=== PATIENT | female | born 1930 | race Caucasian/White ===

== ENCOUNTER 2016-10-23 15:18 | Emergency (ER) | payer OTHER, MEDICARE ==
[~2016-10-23] VITALS: Ht 152.4 cm; Wt 54.4 kg
[~2016-10-23 15:18] MED LIST: ALBUTEROL0.09 MG/A1 INH; AMIODARONE200 MG PO; AVAPRO75 MG PO; DOXYCYCLINE MO100 MG PO; ECOTRIN81 MG PO; GUAFENESIN400 MG PO; LIDODERM 5% PAT1 PAT EXT; MEDROL DOSEPAK1 PAC PO; MELOXICAM7.5 MG PO; MIRALAX17 GM PO; MOTRIN 400 MG400 MG PO; NAMENDA5 MG PO; PRISTIQ ER50 MG PO; PROTONIX 40MG T40 MG PO; ROXICODONE5 MG PO; ROZEREM8 MG PO; Senokot S PO; TESSALON PERLE100 MG PO; TRAMADOL HCL50 MG PO; TYLENOL500 MG PO; VITAMIN D1000 IU PO; ZITHROMAX Z-PA250 M1 PO
[2016-10-23 15:24] VITALS: BP 176/70
--- NOTE | 2016-10-23 16:13 | ED GI/GU/ABDOMINAL COMPLAINT ---
History of Present Illness General Chief Complaint: General Adult Stated Complaint: SIB MD MARTÍNEZ FOR BLACK STOOL Source: patient, family Exam Limitations: dementia Vital Signs & Intake/Output Vital Signs & Intake/Output Vital Signs Date Time Temp Pulse Resp B/P Pulse O2 O2 Flow FiO2 Ox Delivery Rate 10/23 1524 97.2 80 18 176/70 98 Room Air Allergies Coded Allergies: fentanyl (GI UPSET, TORRES 01/25/16) morphine (HEADACHE, GI UPSET 01/25/16) codeine (Mild, GI, HEADACHE 01/25/16) hydrocodone (Mild, GI, TORRES 01/25/16) meperidine (From DEMEROL) (Mild, HALLUCINATIONS 01/25/16) oxycodone (Mild, GI, TORRES 01/25/16) procaine (Mild, HEADACHE, UPSET STOMACH 01/25/16) Reconcile Medications Amiodarone Hydrochloride (Amiodarone) 200 MG TAB 1 TAB PO DAILY HEART ( Reported) Aspirin (Ecotrin) 81 MG ECT 1 TAB PO DAILY HEART/BLOOD (Reported) Cholecalciferol (Vitamin D3) 1,000 IU TAB 1,000 IU PO DAILY VIT D SUPPLEMENT, OSTEOPOROSIS Desvenlafaxine Succinate (Pristiq ER) 50 MG TAB.ER.24H 1 TAB PO DAILY DEPRESSION (Reported) Irbesartan (Avapro) 75 MG TAB 1 TAB PO DAILY BP (Reported) Memantine Hydrochloride (Namenda) 5 MG TAB 1 TAB PO BID DEMENTIA (Reported) Triage Note: 85 YEAR OLD FEMALE TO ER WITH HER , SPOUSE STATES THAT PT HAS DEMENTIA AND THAT OVER THE PAST 3 DAYS SHE HAS HAD BLACK STOOL. THEY CALLED HER PMD AND THEY TOLD HER TO COME TO ER. PTS SPOUSE STATES THAT HE IS WONDERING IF ITS THE BLUE BERRIES THAT PT EATS IN THE AM. DESCIBE STOOL HAS SMOOTH BALLS. PT DENIES ABD PAIN/N/V/D. Triage Nurses Notes Reviewed? yes ? N Is pt currently ? No Onset: Abrupt Duration: constant Timing: recent history Severity Numbers: 1 Radiation: no radiation Activities at Onset: none HPI: Patient is a 85-year-old female with a past medical history of dementia, atrial fibrillation not on anticoagulation, osteoporosis and hypertension who presents emergency room with in which patient history is limited due to dementia concerns however states that the past 4 days she has had bowel movements with noted black tarry stools. Patient told this to her primary care Dr. Martínez today and advised patient to present to emergency room. Patient states that last colonoscopy was approximately 10 years ago and has had unremarkable findings with the colonoscopies. Denies any fever, chills, lightheaded sensation dizziness chest pain arm pain jaw pain nausea vomiting abdominal pain weight loss, bright red blood per rectum, rectal pain, states the patient has been acting normal and has not described any symptoms however only has sign of back tarry stools (GIUSEPPE GRUBBS) Past History Travel History Traveled to [place] past 21 day No Medical History Any Pertinent Medical History? 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 No (GIUSEPPE GRUBBS) Review of Systems Review of Systems Constitutional: Reports: no symptoms. EENTM: Reports: no symptoms. Respiratory: Reports: no symptoms. Cardiovascular: Reports: no symptoms. GI: Reports: see HPI, changes in stool. Denies: abdominal pain, nausea. Genitourinary: Reports: no symptoms. Musculoskeletal: Reports: no symptoms. Skin: Reports: no symptoms. Neurological/Psychological: Reports: no symptoms. Hematologic/Endocrine: Reports: no symptoms. Immunologic/Allergic: Reports: no symptoms. All Other Systems: Reviewed and Negative (GIUSEPPE GRUBBS) Physical Exam Physical Exam General Appearance: no apparent distress, alert Gastrointestinal: normal bowel sounds, soft, non-tender, no organomegaly Rectal: heme negative stool, BROWN STOOL Comments: Well-developed well-nourished person in no acute distress HEENT: Normal EENT exam, Neck: Supple, no lymphadenopathy, normal range of motion without pain or tenderness Back: Nontender, no CVA tenderness. Cardiovascular: Regular rate and rhythms no murmurs rubs or gallops, normal JVP Respiratory: Chest nontender. No respiratory distress.breath sounds clear to auscultation bilaterally Abdomen: Soft, nontender nondistended, no appreciable organomegaly. Normal bowel sounds. No ascites Extremity: No edema, no calf tenderness to palpation, normal and equal pulses. Neuro: Alert, motor sensory normal, Skin: No appreciable rash on exposed skin, skin is warm and dry. Psych: Mood and affect is normal, memory and judgment is normal. Core Measures ACS in differential dx? No Severe Sepsis Present: No Septic Shock Present: No (GIUSEPPE GRUBBS) Progress Differential Diagnosis: AAA, AMI, biliary colic, bowel obstruction, colon cancer , cholecystitis, diverticulitis, endometritis, esophageal varices, gastritis, hepatitis, hernia, hemorrhoids, ischemic bowel, inflamm bowel dis, kidney stone, Yvette-Myra tear, ovarian cyst, ovarian torsion, pancreatitis, PID/cervicitis, peptic ulcer, PUD/GERD, perforated viscous, SBO, UTI/pyelo Initial ED EKG: none (GIUSEPPE GRUBBS) Plan of Care: Orders Procedure Date/time Status PARTIAL THROMBOPLASTIN TIME 10/23 161 Complete PROTHROMBIN TIME 10/23 161 Complete COMPREHENSIVE METABOLIC PANEL 10/23 161 Complete CBC WITHOUT DIFFERENTIAL 10/23 161 Complete TYPE & SCREEN (NOT X-MATCH) 10/23 161 Active Laboratory Tests 10/23/16 1628: Anion Gap 13, Estimated GFR 60, BUN/Creatinine Ratio 26.7 H, Glucose 83, Calcium 9.5, Total Bilirubin 0.7, AST 20, ALT 30, Alkaline Phosphatase 38, Total Protein 6.8, Albumin 4.5, Globulin 2.3, Albumin/Globulin Ratio 2.0, PT 10.2, INR 0.97, APTT 28, CBC w Diff NO MAN DIFF REQ, RBC 4.28, MCV 92.1, MCH 31.3 H, RDW 13.1, MPV 7.9, Gran % 73.6, Lymphocytes % 16.0 L, Monocytes % 7.6, Eosinophils % 2.2, Basophils % 0.6, Absolute Granulocytes 4.8, Absolute Lymphocytes 1.1 L, Absolute Monocytes 0.5, Absolute Eosinophils 0.1, Absolute Basophils 0, PUBS MCHC 34.0 Patient on initial examination looks well no apparent distress has nontender abdomen and rectal exam showed brown stool and negative fecal occult blood test Vital signs are stable patient is normotensive Blood work will be obtained for concerns of resolved GI bleed. Blood work was unremarkable hemoglobin and hematocrit were stable Patient was informed of all labs results patient was strongly advised to follow up with primary care doctor. I discussed disposition plan with son and who agree. Patient was given copies of blood work for follow-up. Discussed disposition and plan with Dr. Baptiste who agrees (GIUSEPPE GRUBBS) Departure Departure Disposition: HOME OR SELF CARE Condition: Stable Clinical Impression Primary Impression: Black stool Referrals: MAURICIO RAMÍREZ,ANUSHKA (PCP/Family) Additional Instructions: As discussed please follow-up with your primary care doctor tomorrow and continue home medications as directed. 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 If symptoms worsen or if you develop WORSENING SYMPTOMS return to emergency room immediately. Please give the primary care doctor copies of the blood work redness in the emergency room Departure Forms: Customer Survey General Discharge Information (GIUSEPPE GRUBBS) PA/TANNING WHEEL OPERATOR Co-Sign Statement Statement: ED Attending supervision documentation- [x] I saw and evaluated the patient. I have also reviewed all the pertinent lab results and diagnostic results. I agree with the findings and the plan of care as documented in the PA's/TANNING WHEEL OPERATOR's documentation. [] I have reviewed the ED Record and agree with the PA's/TANNING WHEEL OPERATOR's documentation. [] Additions or exceptions (if any) to the PAs/TANNING WHEEL OPERATOR's note and plan are summarized below: [] (ARLYN RAMÍREZ,MILADIS Suero)
[2016-10-23 16:54] LABS: ABSOLUTE BASOPHIL COUNT 0 /CUMM (0.0-0.2); ABSOLUTE EOSINOPHIL COUNT 0.1 /CUMM (0.0-0.7); ABSOLUTE GRANULOCYTE CT 4.8 /CUMM (1.4-6.5); ABSOLUTE LYMPH COUNT 1.1 /CUMM (1.2-3.4); ABSOLUTE MONOCYTE COUNT 0.5 /CUMM (0.10-0.60); BASOPHIL % 0.6 % (0.0-2.0); EOSINOPHIL % 2.2 % (0-5); GRANULOCYTE % 73.6 % (42.2-75.2); HEMATOCRIT 39.4 % (37-47); MEAN CORPUSCULAR HGB 31.3 PG (27.0-31.0); MEAN CORPUSCULAR VOLUME 92.1 FL (81.0-99.0); MEAN PLATELET VOLUME 7.9 FL (7.4-10.4); PLATELET COUNT 220 /CUMM (130-400); RBC DISTRIBUTION WIDTH 13.1 % (11.5-14.5); RED BLOOD CELL CT 4.28 /CUMM (4.20-5.40); WHITE BLOOD CELL COUNT 6.6 /CUMM (4.8-10.8)
[2016-10-23 17:04] LABS: PT 10.2 SEC (9.4-12.5); PTT 28 SEC (25-37)
== END 2016-10-23 17:49 ==
LOC: ERH 15:18
PROVIDERS: Physician Assistant
DX: R19.5 Other fecal abnormalities (principal); I48.91 Unspecified atrial fibrillation; F03.90 Unspecified dementia, unspecified severity, without behavioral disturbance, psychotic disturbance, mood disturbance, and anxiety; I10 Essential (primary) hypertension; Z95.0 Presence of cardiac pacemaker; Z96.659 Presence of unspecified artificial knee joint

== ENCOUNTER 2017-12-23 12:19 | Emergency (ER) | payer OTHER, MEDICARE ==
[~2017-12-23 12:19] MED LIST changes: +AMIODARONE HCL200 M1 PO; -AMIODARONE200 MG PO; +ASPIRIN EC81 M1 PO; +AVAPRO75 M1 PO; -AVAPRO75 MG PO; +CRANBERRY400 M2 PO; -ECOTRIN81 MG PO; +FISH OIL 1,0001 EACH PO; +FOLIC ACID1 M1 PO; +MAGNESIUM400 M1 PO; +NAMENDA5 M1 PO; -NAMENDA5 MG PO; +UBIQUINOL100 MG PO; +VITAMIN B-121000 MC3 PO; +VITAMIN C500 M6 PO; +VITAMIN D35000 UNI1 PO; +ZOFRAN ODT4 M1 SL
[2017-12-23] MEDS ORDERED: ADDERALL 5 MG TA5 MG PO (12:28)
--- NOTE | 2017-12-23 12:43 | ED MVC/FALL/TRAUMA COMPLAINT ---
History of Present Illness General Chief Complaint: Fall Stated Complaint: FALL Source: patient, family Exam Limitations: dementia Vital Signs & Intake/Output Vital Signs & Intake/Output Vital Signs Date Time Temp Pulse Resp B/P B/P Pulse O2 O2 Flow FiO2 Mean Ox Delivery Rate 12/23 1645 Room Air 12/23 1600 97.6 65 16 122/56 96 Room Air 12/23 1422 97.0 78 20 132/79 96 Room Air 12/23 1222 97.0 82 20 151/65 96 Room Air Allergies Coded Allergies: fentanyl (GI UPSET, TORRES 01/25/16) morphine (HEADACHE, GI UPSET 01/25/16) codeine (Mild, GI, HEADACHE 01/25/16) hydrocodone (Mild, GI, TORRES 01/25/16) meperidine (From DEMEROL) (Mild, HALLUCINATIONS 01/25/16) oxycodone (Mild, GI, TORRES 01/25/16) procaine (Mild, HEADACHE, UPSET STOMACH 01/25/16) Reconcile Medications Amiodarone (Cordarone) 200 MG TAB 1 TAB PO DAILY HEART (Reported) Ascorbate Calcium (Vitamin C) 500 MG TABLET 1 TAB PO BID VITAMIN SUPPORT ( Reported) Aspirin (Ecotrin*) 81 MG TABLET.DR 1 TAB PO DAILY HEART (Reported) Cholecalciferol (Vitamin D3) (Vitamin D3) 5,000 UNIT TABLET 1 TAB PO DAILY VITAMIN SUPPORT (Reported) Cranberry 400 MG CAPSULE 1 CAP PO DAILY VITAMIN SUPPORT (Reported) Cyanocobalamin (Vitamin B-12) 1,000 MCG TABLET 1 TAB PO DAILY VITAMIN SUPPORT (Reported) Desvenlafaxine Succinate (Pristiq ER) 50 MG TAB.ER.24H 1 TAB PO DAILY DEPRESSION (Reported) Dextroamphetamine/Amphetamine (Adderall 5 MG Tablet) (Unknown Strength) TABLET (Unknown Dose) PO BID UNKNOWN (Reported) Folic Acid 1 MG TABLET 1 TAB PO DAILY VITAMIN SUPPORT (Reported) Irbesartan (Avapro) 75 MG TABLET 1 TAB PO DAILY HEART (Reported) Magnesium Oxide (Magnesium) 400 MG CAPSULE 1 CAP PO BID SUPPLEMENT (Reported) Memantine HCl (Namenda) 5 MG TABLET 1 TAB PO BID DEMENTIA (Reported) Peebles-3 Fatty Acids/Fish Oil (Fish Oil 1,000 MG Capsule) 340 MG-1,000 MG CAPSULE 1 CAP PO BID SUPPLEMENT (Reported) Ubiquinol 100 MG CAPSULE 1 CAP PO DAILY UNKNOWN (Reported) Triage Note: PER PT/EMS FELL ABOUT 0430 PT UNSURE OF HOW SHE FELL HX OF DEMENTIA, CO L FLANK, L RIB PAIN ALSO L FOREARM ABRASED. PT DID NOT HIT HEAD NO LOC NO BLOOD THINNERS PT DISCHARGED 2 DAYS AGO FROM [facility] SP BLADDER ISSUE Triage Nurses Notes Reviewed? yes Onset: Abrupt Duration: hour(s): Timing: single episode today Severity: moderate Injuries/Fall Location: upper extremity, chest Method of Injury: fall Loss of Consciousness: no loss of consciousness HPI: 87yo female with hx of dementia, osteoporosis, heart block s/p pacemaker BIBA after fall early this morning around 0430. HPI is limited due to patient's dementia. Patient's reports that he found the patient lying on the ground and was having difficulty getting her up and called for an ambulance. Patient states she was walking to the bathroom when she fell, she is unsure of how exactly she fell, denies head strike or loss of consciousness. Patient has skin tear to right forearm and is complaining of left lateral rib cage pain, worse with inspiration. Patient was recently discharged from [facility] 2 days ago following a right ureteral stent placement by Dr. Mccain. She has been taking Bactrim antibiotics following this procedure. Patient denies headache, visual changes, vomiting, abdominal pain, presyncope, lightheadedness. (Cristiana Shankar) Past History Travel History Traveled to [place] past 21 day No Medical History Any Pertinent Medical History? see below for history Neurological: dementia EENT: NONE Cardiovascular: pace-maker BLOCK Respiratory: NONE Gastrointestinal: NONE Hepatic: NONE Renal: NONE Musculoskeletal: osteoporosis Psychiatric: NONE Endocrine: NONE Blood Disorders: NONE Cancer(s): NONE PUBLIC ADMINISTRATION PROFESSOR/Reproductive: NONE History of MRSA: No History of VRE: No History of CDIFF: No Surgical History Surgical History: appendectomy, knee replacement, pacemaker Psychosocial History Who do you live with Patient and family Services at Home None What is your primary language Bulgarian Tobacco Use: Never used Family History Hx Contributory? No (Cristiana Shankar) Review of Systems Review of Systems Constitutional: Reports: no symptoms. Eyes: Reports: no symptoms. Ears, Nose, Throat, Mouth: Reports: no symptoms. Respiratory: Reports: see HPI. Cardiovascular: Reports: no symptoms. Gastrointestinal/Abdominal: Reports: no symptoms. Genitourinary: Reports: see HPI. Musculoskeletal: Reports: see HPI. Skin: Reports: see HPI. Neurological/Psychological: Reports: no symptoms. All Other Systems: Reviewed and Negative (Peyton GREEN,Cristiana Arellano) Physical Exam Physical Exam General Appearance: well developed/nourished, no apparent distress, alert, awake Head: atraumatic, normal appearance Eyes: Bilateral: normal appearance, PERRL, EOMI. Ears, Nose, Throat, Mouth: hearing grossly normal, moist mucous membrane, Tympanic normal Neck: normal inspection, supple, full range of motion, no midline tenderness Respiratory: normal breath sounds, no respiratory distress, lungs clear, left lateral ribcage tenderness, no ecchymosis or deformity Cardiovascular: regular rate/rhythm, normal peripheral pulses Peripheral Pulses: 2+ radial (R), 2+ radial (L) Gastrointestinal: normal bowel sounds, soft, non-tender, no organomegaly Back: normal inspection, normal range of motion, no vertebral tenderness Extremities: normal range of motion, superficial skin avulsion to right forearm, no active bleeding, mild tenderness of right forearm, ROM intact Hips and lower extremities with intact ROM, nontender Neurologic/Psych: awake, alert, regulatory associate II-XII nml as tested, oriented to person and place, not time Skin: skin avulsion to right forearm Core Measures ACS in differential dx? Yes CVA/TIA Diagnosis No Sepsis Present: No Sepsis Focused Exam Completed? No (Peyton GREEN,Cristiana Arellano) Progress Differential Diagnosis: C/T/L spine injury, ext injury, ICH, pelvis injury, pnemothorax, spinal cord injury, rib fracture, ACS, SAEED, dehydration, electrolyte abnormality Plan of Care: Orders Procedure Date/time Status URINE DRUG SCREEN FOR ER ONLY 12/23 1301 Complete URINALYSIS 12/23 1301 Complete TROPONIN LEVEL 12/23 1301 Complete COMPREHENSIVE METABOLIC PANEL 12/23 1301 Complete CBC WITHOUT DIFFERENTIAL 12/23 1301 Complete EKG 12/23 1224 Active Laboratory Tests 12/23/17 1432: Urine Opiates Screen < 100, Methadone Screen 55, Barbiturate Screen < 60, Ur Phencyclidine Scrn < 6.00, Amphetamines Screen < 100, U Benzodiazepines Scrn < 85, Urine Cocaine Screen < 50, Urine Cannabis Screen < 5.00, Urine Color BLDY H , Urine Clarity CLDY H, Urine pH 7.0, Ur Specific [place] 1.015, Urine Protein 100 H, Urine Ketones TRACE H, Urine Nitrite NEG, Urine Bilirubin NEG, Urine Urobilinogen 0.2, Ur Leukocyte Esterase MOD H, Ur Microscopic SEDIMENT EXAMINED , Urine RBC >75 H, Urine WBC 3-5 H, Urine Hemoglobin LARGE H, Urine Glucose NEG 12/23/17 1340: Anion Gap 7, Estimated GFR 47 L, BUN/Creatinine Ratio 18.2, Glucose 77, Calcium 9.4, Total Bilirubin 0.7, AST 20, ALT 25, Alkaline Phosphatase 36, Troponin I < 0.01, Total Protein 6.0 L, Albumin 3.9, Globulin 2.1, Albumin/Globulin Ratio 1.9, CBC w Diff NO MAN DIFF REQ, RBC 4.09 L, MCV 92.5, MCH 30.8, MCHC 33.3, RDW 13.7, MPV 8.4, Gran % 78.8 H, Lymphocytes % 11.0 L, Monocytes % 8.6, Eosinophils % 1.1, Basophils % 0.5, Absolute Granulocytes 5.0, Absolute Lymphocytes 0.7 L, Absolute Monocytes 0.5, Absolute Eosinophils 0.1, Absolute Basophils [address] scan shows severe right-sided hydronephrosis despite uretal stent. No recent old CT imaging to compare this too, she was recently treated at [facility]. Patient's labs show mild elevated creatinine, 1.1, slightly diminished GFR at 47 which is changed from previous studies. Spoke with [facility] regarding this patient. Patient had stent placed . Patient had moderate to severe hydronephrosis at that time. They do not have old labs to compare kidney function with however state today's kidney function labs appear stable, they recommend follow-up with patient's urologist, Dr. Mccain, tomorrow. Patient ambulatory here in the emergency Department without difficulty. Patient 's family was given list of private pay homemakers and companions for home health aide. The patient agrees with the plan of care, no significant pain at this time. The patient was discussed with Dr. Escudero agrees with this plan. Diagnostic Imaging: Viewed by Me: Radiology Read, CT Scan. Discussed w/RAD: Radiology Read, CT Scan. Radiology Impression: PATIENT: MARTY BABIN PRESENT AGE: 87 PATIENT ACCOUNT NO: [id number] : 30 LOCATION: [facility] ORDERING PHYSICIAN: Cristiana GREEN SERVICE DATE: 12/23/171301 EXAM TYPE: CAT - CT CERV SPINE WO IV CONTRAST; CT HEAD WO IV CONTRAST EXAMINATION: CT OF THE HEAD WITHOUT CONTRAST CT OF THE CERVICAL SPINE WITHOUT CONTRAST CLINICAL INFORMATION: Status post unwitnessed fall. Rule out intracranial hemorrhage or fracture. Evaluate for malalignment of the cervical spine. COMPARISON: CT scan of the head dated 09/28/2013. TECHNIQUE: Contiguous axial imaging was performed from the skullbase to vertex without intravenous administration of contrast. Coronal reformations of the head were obtained. Contiguous axial imaging was then performed from the skull base down to the thoracic inlet. Coronal and sagittal reformations of the cervical spine were obtained. DLP: 903.17 mGy-cm. FINDINGS: Evaluation is mildly limited by motion artifact. CT scan of the head: There is no evidence of acute intracranial hemorrhage or territorial infarction. No abnormal mass-effect or midline shift is seen. Benson to white matter differentiation is well preserved. No extra-axial fluid collections are identified. The ventricles and sulci are enlarged, consistent with involutional changes. There is mild periventricular deep white matter low-attenuation seen, consistent with ischemic small vessel disease. Calcification of the carotid siphons is seen. Scleral banding is noted bilaterally. The osseous structures and soft tissues are normal. The mastoid air cells and visualized portions of the paranasal sinuses are well-aerated. CT scan of the cervical spine: No evidence of acute fracture or dislocation. Craniocervical junction and atlantoaxial articulations are intact. Moderate degenerative changes as seen at the craniocervical junction and atlantoaxial articulation. There is severe disc space narrowing and associated vertebral endplate spurring at the C6-C7 level with associated grade 1 anterolistheses of C6 on C7. Mild degenerative disc disease is seen at C5-C6. Moderate facet arthropathy is present throughout the mid and lower thoracic spine. Prevertebral soft tissues are normal in thickness. Extensive nodularity of the thyroid gland is seen with largest complex cystic and solid mass seen in the right lobe, measuring 1.4 x 1.2 cm (series 11, image 53). Coarse calcifications also seen in the left lobe. The included soft tissues of the neck and lung apices are otherwise unremarkable. Soft tissues in region of the foramen magnum appear unremarkable. IMPRESSION: CT scan of the head: No acute intracranial pathology. Involutional changes and findings of periventricular deep white matter microangiopathic changes noted. CT scan of the cervical spine: No evidence of cervical spine fracture or malalignment. Multilevel degenerative changes in the disks and facet joints. Nodular thyroid gland. Further assessment with thyroid ultrasound is recommended. DICTATED BY: Sophia Hilton MD DATE/TIME DICTATED:12/23/171401 PIPE ORGAN MECHANIC:YASMIN DATE/TIME TRANSCRIBED:12/23/171401 CONFIDENTIAL, DO NOT COPY WITHOUT APPROPRIATE AUTHORIZATION. <Electronically signed in Other Vendor System> SIGNED BY: Sophia Hilton MD. 12/23/17 1420, PATIENT: MARTY BABIN PRESENT AGE: 87 PATIENT ACCOUNT NO: [id number] : 30 LOCATION: [facility] ORDERING PHYSICIAN: Cristiana GREEN SERVICE DATE: 1301 EXAM TYPE: CAT - CT CHEST WO IV CONTRAST EXAMINATION: CT CHEST WITHOUT CONTRAST CLINICAL INFORMATION: Left-sided pleuritic chest pain. Unwitnessed fall. Left rib cage tenderness. Rule out left rib fracture. COMPARISON: Chest x- ray dated 12/03/2015. TECHNIQUE: Multidetector volumetric CT imaging of the chest was obtained noncontrast. Sagittal and coronal reformations were obtained. DLP: 184.53 mGy-cm. FINDINGS: LUNGS: Low lung volumes are seen with dependent atelectatic changes in both lower lobes. Posteriorly in the right lower lobe, a 3.2 x 1.2 x 1.5 cm masslike pleural-based density is seen (series 4, image 248), perhaps representing a peripheral area of subsegmental atelectasis, nodular noncalcified plaque-like thickening of the pleura or other mass. There is a 5 mm solid noncalcified nodule in the right lung apex medially (series 4, image 80). There is a tiny right major fissure-based solid noncalcified nodule consistent with a lymph node (series 4, image 194). No effusion or pneumothorax. Central airways are diffusely calcified and patent. LYMPHOVASCULAR STRUCTURES: Right atrial and right ventricular pacer leads are in place. Aortic and heart size normal. Moderate atherosclerotic calcifications of the thoracic aorta and severe atherosclerotic calcifications of the abdominal aorta are noted. There may be aortic valvular calcifications. No pericardial effusion. No mediastinal, hilar or axillary adenopathy or free fluid collection. THYROID GLAND: Suboptimally assessed due to extensive beam hardening artifact related to the pacemaker generator box in the left upper chest. Nodularity of the thyroid gland is seen. UPPER ABDOMEN: The proximal portion of a double-J right ureteral stent is seen in place. Severe right-sided hydronephrosis is noted. Small amount of air is noted within the right mid kidney and in the renal pelvis region. There is dense material seen layering posteriorly within the gallbladder, possibly due to sludge. No definite intravenous contrast has been given recently to suspect vicarious excretion of contrast. There is some fullness at the GE junction, possibly due to small hiatal hernia. Included portions of the solid organs in the upper abdomen otherwise unremarkable on noncontrast study. BONES: Old healed fracture deformities of the posterior lateral left eighth, ninth, 10th, and 11th ribs are seen. There are also old healed fracture deformities of the right anterior third and fourth rib and the posterior right eighth and ninth rib. There is irregularity of the costochondral junctions of the left fourth, fifth, sixth, eighth, ninth and 10th ribs, possibly also representing old fracture deformities. No acute rib fracture is seen. Convex left thoracolumbar scoliosis is seen with multilevel moderate vertebral spondylosis. IMPRESSION: 1. Multiple bilateral old healed fracture deformities are seen. No definite acute fracture or abnormal periosteal reaction of the ribs is seen. No pneumothorax is noted. 2. Large masslike pleural-based density is seen posteriorly within the left lower lobe. This is of uncertain etiology and may represent a noncalcified focal pleural plaque or other pleural mass versus peripheral area of masslike atelectasis. No underlying rib abnormality is seen in this location to suspect a posttraumatic hematoma or other collection. Short interval follow-up evaluation in 4 weeks is recommended. If findings persist, further investigation with either biopsy or PET/CT scan may be indicated. 3. Likely benign 5 mm right upper lobe pulmonary nodule. Per the Fleischner criteria, if the patient has no underlying risk factors, no additional follow-up is required. If the patient has underlying risk factors, optional CT scan follow-up in 12 months is recommended. 4. No adenopathy. 5. Nodularity of thyroid gland is seen, but is poorly assessed on this exam. Further assessment with thyroid ultrasound is recommended. 6. Severe right-sided hydronephrosis despite double-J right ureteral stent placement. Small amount of air is also seen within the right renal collecting system and renal pelvis. 7. Layering sludge or debris within the gallbladder. DICTATED BY: Sophia Hilton MD DATE/TIME DICTATED:12/23/171421 PIPE ORGAN MECHANIC:YASMIN DATE/TIME TRANSCRIBED:12/23/171421 CONFIDENTIAL, DO NOT COPY WITHOUT APPROPRIATE AUTHORIZATION. <Electronically signed in Other Vendor System> SIGNED BY: Sophia Hilton MD 12/23/17 145, PATIENT: MARTY BABIN PRESENT AGE: 87 PATIENT ACCOUNT NO: [id number] : 30 LOCATION: [facility] ORDERING PHYSICIAN: Cristiana GREEN SERVICE DATE: 12/23/17 EXAM TYPE: RAD - XRY-FOREARM, RIGHT EXAMINATION: XR FOREARM, RIGHT CLINICAL INFORMATION: Status post fall with skin tear to right forearm. Rule out fracture. COMPARISON: None TECHNIQUE: AP and lateral views of the right forearm were obtained. FINDINGS: Diffuse osteopenia. No acute fracture or dislocation. No radiopaque foreign body in the soft tissues. Mild degenerative changes at the first and second carpometacarpal joint partially imaged. IMPRESSION: 1. No fracture or dislocation of the right forearm. 2. Mild degenerative changes at the first and second carpometacarpal joint. DICTATED BY: Sophia Hilton MD DATE/TIME DICTATED:12/23/171454 PIPE ORGAN MECHANIC:YASMIN DATE/TIME TRANSCRIBED:12/23/171454 CONFIDENTIAL, DO NOT COPY WITHOUT APPROPRIATE AUTHORIZATION. <Electronically signed in Other Vendor System> SIGNED BY: Sophia Hilton MD 12/23/17 1500 Initial ED EKG: atrial paced complexes, rate about 60bpm, LBBB, nonspecific ST changes Prior EKG: unchanged (10/02/17) (Peyton GREEN,Cristiana Arellano) Departure Departure Disposition: HOME OR SELF CARE Condition: Stable Clinical Impression Primary Impression: Fall Qualifiers: Encounter type: initial encounter Qualified Code: W19.XXXA - Unspecified fall, initial encounter Secondary Impressions: Hydronephrosis Qualifiers: Hydronephrosis type: unspecified Qualified Code: N13.30 - Unspecified hydronephrosis Referrals: Michelle RAMÍREZ,Geremias (PCP/Family) Additional Instructions: Call Dr. Mccain tomorrow to discuss the CAT scan results, he may when she do follow up in the office this week. Use a walker when you are at home. Return with any worsening symptoms or concerns. Please note that there might be incidental findings in your evaluation that are unrelated to the current emergency department visit. Please notify your primary care doctor about this emergency department visit in order to obtain and review all of the testing performed so that these incidental findings can be monitored as needed. If you had an x-ray performed, please understand that some fractures may not be seen on the initial set of x-rays. If your symptoms persist you might need a repeat set of x-rays to check for such a fracture. If you had a laceration evaluated, please understand that foreign bodies such as glass or wood may not be visible to the naked eye or on plain x-rays. If the wound becomes red, swollen, increasingly more painful or if there is any drainage from the wound, please have it reevaluated by a physician for the possibility of a retained foreign body. If you're unable to follow up as outlined in the discharge instructions please return to the emergency department. Thank you for choosing the [facility] Emergency Department for your care. It was a pleasure to serve you today. Departure Forms: Customer Survey General Discharge Information (Peyton GREEN,Cristiana Arellano) PA/VIRTUALIZATION CONSULTANT Co-Sign Statement Statement: ED Attending supervision documentation- [X] I saw and evaluated the patient. I have also reviewed all the pertinent lab results and diagnostic results. I agree with the findings and the plan of care as documented in the PA's/VIRTUALIZATION CONSULTANT's documentation. [X] I have reviewed the ED Record and agree with the PA's/VIRTUALIZATION CONSULTANT's documentation. [] Additions or exceptions (if any) to the PAs/VIRTUALIZATION CONSULTANT's note and plan are summarized below: [] (Kota RAMÍREZ,Tristin Torres)
[2017-12-23 14:06] LABS: ABSOLUTE BASOPHIL COUNT 0 /CUMM (0.0-0.2); ABSOLUTE EOSINOPHIL COUNT 0.1 /CUMM (0.0-0.7); ABSOLUTE LYMPH COUNT 0.7 /CUMM (1.2-3.4); ABSOLUTE MONOCYTE COUNT 0.5 /CUMM (0.10-0.60); BASOPHIL % 0.5 % (0.0-2.0); EOSINOPHIL % 1.1 % (0-5); GRANULOCYTE % 78.8 % (42.2-75.2); HEMATOCRIT 37.8 % (37-47); MEAN CORPUSCULAR HGB 30.8 PG (27.0-31.0); MEAN CORPUSCULAR HGB CONC 33.3 G/DL (33.0-37.0); MEAN CORPUSCULAR VOLUME 92.5 FL (81.0-99.0); MEAN PLATELET VOLUME 8.4 FL (7.4-10.4); PLATELET COUNT 262 /CUMM (130-400); RBC DISTRIBUTION WIDTH 13.7 % (11.5-14.5); RED BLOOD CELL CT 4.09 /CUMM (4.20-5.40); WHITE BLOOD CELL COUNT 6.3 /CUMM (4.8-10.8)
--- NOTE | 2017-12-23 14:20 | CT SCAN REPORT ---
EXAMINATION: CT OF THE HEAD WITHOUT CONTRAST CT OF THE CERVICAL SPINE WITHOUT CONTRAST CLINICAL INFORMATION: Status post unwitnessed fall. Rule out intracranial hemorrhage or fracture. Evaluate for malalignment of the cervical spine. COMPARISON: CT scan of the head dated 09/28/2013. TECHNIQUE: Contiguous axial imaging was performed from the skullbase to vertex without intravenous administration of contrast. Coronal reformations of the head were obtained. Contiguous axial imaging was then performed from the skull base down to the thoracic inlet. Coronal and sagittal reformations of the cervical spine were obtained. DLP: 903.17 mGy-cm. FINDINGS: Evaluation is mildly limited by motion artifact. CT scan of the head: There is no evidence of acute intracranial hemorrhage or territorial infarction. No abnormal mass-effect or midline shift is seen. Benson to white matter differentiation is well preserved. No extra-axial fluid collections are identified. The ventricles and sulci are enlarged, consistent with involutional changes. There is mild periventricular deep white matter low-attenuation seen, consistent with ischemic small vessel disease. Calcification of the carotid siphons is seen. Scleral banding is noted bilaterally. The osseous structures and soft tissues are normal. The mastoid air cells and visualized portions of the paranasal sinuses are well-aerated. CT scan of the cervical spine: No evidence of acute fracture or dislocation. Craniocervical junction and atlantoaxial articulations are intact. Moderate degenerative changes as seen at the craniocervical junction and atlantoaxial articulation. There is severe disc space narrowing and associated vertebral endplate spurring at the C6-C7 level with associated grade 1 anterolistheses of C6 on C7. Mild degenerative disc disease is seen at C5-C6. Moderate facet arthropathy is present throughout the mid and lower thoracic spine. Prevertebral soft tissues are normal in thickness. Extensive nodularity of the thyroid gland is seen with largest complex cystic and solid mass seen in the right lobe, measuring 1.4 x 1.2 cm (series 11, image 53). Coarse calcifications also seen in the left lobe. The included soft tissues of the neck and lung apices are otherwise unremarkable. Soft tissues in region of the foramen magnum appear unremarkable. IMPRESSION: CT scan of the head: No acute intracranial pathology. Involutional changes and findings of periventricular deep white matter microangiopathic changes noted. CT scan of the cervical spine: No evidence of cervical spine fracture or malalignment. Multilevel degenerative changes in the disks and facet joints. Nodular thyroid gland. Further assessment with thyroid ultrasound is recommended.
--- NOTE | 2017-12-23 14:51 | CT SCAN REPORT ---
EXAMINATION: CT CHEST WITHOUT CONTRAST CLINICAL INFORMATION: Left-sided pleuritic chest pain. Unwitnessed fall. Left rib cage tenderness. Rule out left rib fracture. COMPARISON: Chest x-ray dated 12/03/2015. TECHNIQUE: Multidetector volumetric CT imaging of the chest was obtained noncontrast. Sagittal and coronal reformations were obtained. DLP: 184.53 mGy-cm. FINDINGS: LUNGS: Low lung volumes are seen with dependent atelectatic changes in both lower lobes. Posteriorly in the right lower lobe, a 3.2 x 1.2 x 1.5 cm masslike pleural-based density is seen (series 4, image 248), perhaps representing a peripheral area of subsegmental atelectasis, nodular noncalcified plaque-like thickening of the pleura or other mass. There is a 5 mm solid noncalcified nodule in the right lung apex medially (series 4, image 80). There is a tiny right major fissure-based solid noncalcified nodule consistent with a lymph node (series 4, image 194). No effusion or pneumothorax. Central airways are diffusely calcified and patent. LYMPHOVASCULAR STRUCTURES: Right atrial and right ventricular pacer leads are in place. Aortic and heart size normal. Moderate atherosclerotic calcifications of the thoracic aorta and severe atherosclerotic calcifications of the abdominal aorta are noted. There may be aortic valvular calcifications. No pericardial effusion. No mediastinal, hilar or axillary adenopathy or free fluid collection. THYROID GLAND: Suboptimally assessed due to extensive beam hardening artifact related to the pacemaker generator box in the left upper chest. Nodularity of the thyroid gland is seen. UPPER ABDOMEN: The proximal portion of a double-J right ureteral stent is seen in place. Severe right-sided hydronephrosis is noted. Small amount of air is noted within the right mid kidney and in the renal pelvis region. There is dense material seen layering posteriorly within the gallbladder, possibly due to sludge. No definite intravenous contrast has been given recently to suspect vicarious excretion of contrast. There is some fullness at the GE junction, possibly due to small hiatal hernia. Included portions of the solid organs in the upper abdomen otherwise unremarkable on noncontrast study. BONES: Old healed fracture deformities of the posterior lateral left eighth, ninth, 10th, and 11th ribs are seen. There are also old healed fracture deformities of the right anterior third and fourth rib and the posterior right eighth and ninth rib. There is irregularity of the costochondral junctions of the left fourth, fifth, sixth, eighth, ninth and 10th ribs, possibly also representing old fracture deformities. No acute rib fracture is seen. Convex left thoracolumbar scoliosis is seen with multilevel moderate vertebral spondylosis. IMPRESSION: 1. Multiple bilateral old healed fracture deformities are seen. No definite acute fracture or abnormal periosteal reaction of the ribs is seen. No pneumothorax is noted. 2. Large masslike pleural-based density is seen posteriorly within the left lower lobe. This is of uncertain etiology and may represent a noncalcified focal pleural plaque or other pleural mass versus peripheral area of masslike atelectasis. No underlying rib abnormality is seen in this location to suspect a posttraumatic hematoma or other collection. Short interval follow-up evaluation in 4 weeks is recommended. If findings persist, further investigation with either biopsy or PET/CT scan may be indicated. 3. Likely benign 5 mm right upper lobe pulmonary nodule. Per the Fleischner criteria, if the patient has no underlying risk factors, no additional follow-up is required. If the patient has underlying risk factors, optional CT scan follow-up in 12 months is recommended. 4. No adenopathy. 5. Nodularity of thyroid gland is seen, but is poorly assessed on this exam. Further assessment with thyroid ultrasound is recommended. 6. Severe right-sided hydronephrosis despite double-J right ureteral stent placement. Small amount of air is also seen within the right renal collecting system and renal pelvis. 7. Layering sludge or debris within the gallbladder.
--- NOTE | 2017-12-23 15:00 | RADIOLOGY REPORT ---
EXAMINATION: XR FOREARM, RIGHT CLINICAL INFORMATION: Status post fall with skin tear to right forearm. Rule out fracture. COMPARISON: None TECHNIQUE: AP and lateral views of the right forearm were obtained. FINDINGS: Diffuse osteopenia. No acute fracture or dislocation. No radiopaque foreign body in the soft tissues. Mild degenerative changes at the first and second carpometacarpal joint partially imaged. IMPRESSION: 1. No fracture or dislocation of the right forearm. 2. Mild degenerative changes at the first and second carpometacarpal joint.
[2017-12-23] MEDS ORDERED: CYCLOBENZAPRINE10 M1 PO (15:34)
[2017-12-23] MEDS ORDERED: MOBIC15 M1 PO (15:34)
[2017-12-23 16:00] VITALS: BP 122/56
== END 2017-12-23 17:31 ==
LOC: ERH 12:19
PROVIDERS: Physician Assistant
DX: S51.811A Laceration without foreign body of right forearm, initial encounter (principal); R07.81 Pleurodynia; N13.30 Unspecified hydronephrosis; F03.90 Unspecified dementia, unspecified severity, without behavioral disturbance, psychotic disturbance, mood disturbance, and anxiety; W19.XXXA Unspecified fall, initial encounter; Y93.01 Activity, walking, marching and hiking; Y92.9 Unspecified place or not applicable
CPT/HCPCS: 73090-RT; 80307; 81001; 90471; 90714; 93005; 93010